=== PATIENT | male | born 1960 | race Caucasian/White ===

== ENCOUNTER 2017-03-16 09:42 | Emergency (ER) | payer OTHER ==
[~2017-03-16] VITALS: Ht 177.8 cm; Wt 95.0 kg
[2017-03-16 09:44] VITALS: BP 199/130; PULSE 105; RESP 16; TEMP 98.7; O2SAT 95
[2017-03-16] MEDS ORDERED: GLUCTAB PO (09:56)
[2017-03-16] MEDS ORDERED: ZOCO20TA PO (09:56)
[2017-03-16] MEDS ORDERED: RAMI10CA PO (09:56)
[2017-03-16] MEDS ORDERED: ZOFR4TAB3 SL (10:21)
--- NOTE | 2017-03-16 10:22 | PD ---
HPI Chief Complaint: Lump, Cyst, Hernia Time Seen by Provider: 09:56 Travel History International Travel<30 days: No Contact w/Intl Traveler<30days: No Traveled to known affect area: No History of Present Illness HPI Patient is a 56-year-old male presents emergency department for 3 week history of feeling something in the back right side of his throat. He states that it occasionally makes feel like he was going to throw up. Denies any weight loss. States he can't be felt from the exterior of his neck he has not tried to look in his throat and could not see it for himself. Denies any chest pain shortness of breath abdominal pain weight loss nausea vomiting. He was seen in urgent care clinic was placed on a course of antibiotics which is finished and symptoms have not gotten any better. They also recommended that he go to nose and throat doctor. The patient has not seen a primary care physician. She recently moved to the area and does not have one. Nonsmoker but does ingest fair amount of alcohol. Alert and awake and oriented denies tremors. PFSH Past Medical History Hx Anticoagulant Therapy: No Cardiovascular Problems: Yes (HTN, CHOL) High Cholesterol: Yes Diabetes: Yes Patient Takes Glucophage: Yes Diminished Hearing: No Hypertension: Yes Tetanus Vaccination: Unknown Influenza Vaccination: No Past Surgical History Surgical History: No Previous Surgery Social History Alcohol Use: Yes (DAILY, 10- 12 DRINKS) Tobacco Use: No Substance Use: No Allergies-Medications (Allergen,Severity, Reaction): Coded Allergies: No Known Allergies (Unverified , 03/16/17) Reported Meds & Prescriptions Reported Meds & Active Scripts Active Zofran Odt (Ondansetron Odt) 4 Mg Tab 4 Mg SL Q6HR PRN Reported Glucophage XR (Metformin HCl) 500 Mg Keke 1,000 Mg PO DAILY With evening meal Zocor (Simvastatin) 20 Mg Tab 20 Mg PO DAILY Ramipril 10 Mg Cap 20 Mg PO DAILY Review of Systems Except as stated in HPI: all other systems reviewed are Neg Physical Exam Narrative GENERAL: Well-nourished, well-developed patient. SKIN: Focused skin assessment warm/dry. HEAD: Normocephalic. EYES: No scleral icterus. No injection or drainage. ENT: TMs clear bilaterally, oropharynx clear and moist no foreign body seen no growth lesion. NECK: Supple, trachea midline. No JVD or lymphadenopathy. No masses no lesion felt. CARDIOVASCULAR: Regular rate and rhythm without murmurs, gallops, or rubs. RESPIRATORY: Breath sounds equal bilaterally. No accessory muscle use. GASTROINTESTINAL: Abdomen soft, non-tender, nondistended. MUSCULOSKELETAL: No cyanosis, or edema. BACK: Nontender without obvious deformity. No CVA tenderness. Data Data Last Documented VS Vital Signs Date Time Temp Pulse Resp B/P (MAP) Pulse Ox O2 Delivery O2 Flow Rate FiO2 03/16/17 10:25 88 16 193/117 (142) 93 03/16/17 09:44 98.7 Orders Orders Al-Mag Hy-Si 40-40-4 Mg/Ml Liq (Mag-Al P (03/16/17 10:30) Lidocaine 2% Viscous (Xylocaine 2% Visco (03/16/17 10:30) Ed Discharge Order (03/16/17 10:22) [facility] Medical Decision Making Medical Screen Exam Complete: Yes Emergency Medical Condition: No Differential Diagnosis GERD, throat polyp, sore throat, URI, Narrative Course Patient roomed in emergency department, appears well in no distress. There is no indication for emergent workup at this time as the patient is able tolerate his own secretions maintaining his airway and swallowing just fine. No abnormal anatomy is appreciated on physical exam. He is stable for outpatient workup. Referred to ear nose and throat as well as primary care physician. Discussed return to ED criteria. Diagnosis Primary Impression: Throat irritation Referrals: Alexandro Pérez MD [facility] Additional Instructions: Follow-up with the [facility] for further management of your blood pressure. Follow-up with ear nose and throat doctor for evaluation. Med/Other Pt SpecificInfo: Prescription(s) given Scripts Ondansetron Odt (Zofran Odt) 4 Mg Tab 4 MG SL Q6HR Y for Nausea/Vomiting, #20 TAB 0 Refills Prov: Nolberto Qiu MD 03/16/17 Disposition: 01 DISCHARGE HOME Condition: Stable Nolberto Qiu MD Mar 16, 2017 10:22
[2017-03-16 10:25] VITALS: BP 193/117
[2017-03-16] MEDS ORDERED: ALUMINUM/MAGNESIUM/SIMETH 30 ML CUP PO ONE (10:30)
[2017-03-16] MEDS ORDERED: LIDOCAINE VISCOUS 2% SOLN 15 ML UDC PO ONE (10:30)
== END 2017-03-16 10:36 | disposition home or self-care (01) ==
LOC: PHED 09:42
DX: J39.2 Other diseases of pharynx (principal); E78.00 Pure hypercholesterolemia, unspecified; I10 Essential (primary) hypertension; E11.9 Type 2 diabetes mellitus without complications; Z79.84 Long term (current) use of oral hypoglycemic drugs
CPT/HCPCS: 99283